=== PATIENT | male | born 1945 | race Two or more races ===

== ENCOUNTER 2023-10-02 17:05 | Inpatient (IN) | payer OTHER, MEDICAID ==
[~2023-10-02] VITALS: Ht 175.3 cm; Wt 108.2 kg
[2023-10-02 17:56] LABS: Basophils # (auto) 0 10 ^3/uL (0-0.2); Basophils % (auto) 0.4 % (0.0-2.0); Eosinophils # (auto) 0.1 10 ^3/uL (0-0.8); Eosinophils % (auto) 1.3 % (0.0-7.0); Hematocrit 37.3 % (41.0-53.0); Hemoglobin 13.1 g/dL (13.5-17.5); Lymphocytes # (auto) 0.9 10 ^3/uL (0.4-5.4); Lymphocytes % (auto) 9.7 % (10.0-50.0); Mean Corpuscular Hemoglobin 31.2 pg (28.0-32.0); Mean Corpuscular Hgb Conc. 35.1 g/dL (32.0-36.0); Mean Corpuscular Volume 88.9 fL (80.0-100.0); Monocytes # (auto) 0.7 10 ^3/uL (0-1.3); Monocytes % (auto) 7.1 % (0.0-12.0); Neutrophils # (auto) 7.7 10 ^3/uL (1.6-8.6); Neutrophils % (auto) 81.5 % (37.0-80.0); Red Cell Distribution Width 13.4 % (11.8-14.3); White Blood Cell 9.4 10^3/uL (4.4-10.8)
[2023-10-02 18:15] LABS: Alanine Aminotransferase 25 U/L (7-40); Albumin 3.9 g/dL (3.2-4.8); Alkaline Phosphatase 108 U/L (46-116); Anion Gap 5 (5-15); Aspartate Aminotransferase 13 U/L (13-40); BUN/Creatinine Ratio 12.1 (10.0-20.0); Bilirubin, Total 0.7 mg/dL (0.2-1.0); Blood Urea Nitrogen 11 mg/dL (9-23); Calcium 8.6 mg/dL (8.7-10.4); Carbon Dioxide 30 mmol/L (20-30); Chloride 90 mmol/L (98-107); Glucose 153 mg/dL (74-106); Potassium 3.4 mmol/L (3.5-5.1); Sodium 125 mmol/L (136-145)
[2023-10-02 18:18] LABS: INR 1.04 (0.9-1.15); Partial Thromboplastin Time 34.8 SEC (24.5-34.5)
[2023-10-02] MEDS: ACETAMINOPHEN 500 MG TAB PO ONE (18:23)
[2023-10-02] MEDS: SODIUM CHLORIDE 0.9% 1,000 ML IV ONE (20:29)
[2023-10-02] MEDS: POTASSIUM CHL 20 Meq TABLET PO ONE (20:30)
[2023-10-02] MEDS: cefTRIAXone 1GM/50ML D5W 50 ML IV ONE (20:30)
[2023-10-02] MEDS: AZITHROMYCIN 500MG/ 250ML 250 ML IV ONE (20:31)
[2023-10-02 21:28] VITALS: PULSE 78; RESP 16; O2SAT 97
[2023-10-02] MEDS ORDERED: hydrALAZINE HCL 20 MG/ML VL IV PRN (23:15)
[2023-10-02] MEDS ORDERED: ONDANSETRON HCL 4 MG/2 ML VIAL IV PRN (23:15)
[2023-10-02] MEDS ORDERED: HYDROcodone-ACET 5/325MG TAB PO PRN (23:15)
[2023-10-02] MEDS ORDERED: DEXTROSE (50%) 50ML SYRG IV PRN (23:15)
[2023-10-02] MEDS ORDERED: NITROGLYCERIN 0.4 MG SL TAB SL PRN (23:15)
[2023-10-02] MEDS ORDERED: DOCUSATE SOD 100 MG CAP PO PRN (23:15)
[2023-10-02] MEDS ORDERED: ACETAMINOPHEN 325 MG TAB PO PRN (23:15)
[2023-10-02] MEDS ORDERED: MORPHINE SULFATE INJ 2 MG/ml SYRG IV PRN ×2 (23:15)
[2023-10-03] VITALS (9 sets, daily range): BP systolic 108–128; BP diastolic 63–74; PULSE 73–94; RESP 15–19; TEMP 97.7–98.4; O2SAT 95–98
[2023-10-03] MEDS: SODIUM CHLORIDE 0.9% 1,000 ML IV SCH (00:59)
[2023-10-03 01:40] LABS: Urine Bacteria None Seen /hpf (None Seen)
[2023-10-03 01:57] LABS: Urine Blood 3+ /uL (Negative); Urine Clarity Turbid (Clear); Urine Color Colorless (Yellow); Urine Protein, UAD TRACE (Negative); Urine Specific Gravity 1.006 (1.001-1.035); Urine Urobilinogen Normal (Negative); Urine WBC 350 /hpf (0 - 3)
[2023-10-03 04:13] LABS: COVID19 ANTIGEN SOFIA FIA NEGATIVE (NEGATIVE); Rapid Influenza A Negative (Negative); Rapid Influenza B Negative (Negative)
[2023-10-03] MEDS: ACCU-CHEK COMFORT CURVE STRIP VI SCH (05:58)
[2023-10-03] MEDS: InsuLIN REG 1unit/0.01ml Soln (100units/ml) SC SCH ×2 (05:58→22:00)
[2023-10-03 06:45] LABS: Basophils # (auto) 0 10 ^3/uL (0-0.2); Basophils % (auto) 0.5 % (0.0-2.0); Eosinophils # (auto) 0.1 10 ^3/uL (0-0.8); Eosinophils % (auto) 2.1 % (0.0-7.0); Hematocrit 35.8 % (41.0-53.0); Hemoglobin 12.6 g/dL (13.5-17.5); Lymphocytes # (auto) 0.7 10 ^3/uL (0.4-5.4); Lymphocytes % (auto) 11.4 % (10.0-50.0); Mean Corpuscular Hemoglobin 31.4 pg (28.0-32.0); Mean Corpuscular Hgb Conc. 35.1 g/dL (32.0-36.0); Mean Corpuscular Volume 89.3 fL (80.0-100.0); Monocytes # (auto) 0.7 10 ^3/uL (0-1.3); Nucleated Red Blood Cells % 0.1 %; Red Blood Cells 4.01 10^6/uL (4.5-5.90); Red Cell Distribution Width 13.2 % (11.8-14.3); White Blood Cell 6.6 10^3/uL (4.4-10.8)
[2023-10-03 07:17] LABS: Alanine Aminotransferase 21 U/L (7-40); Albumin 3.7 g/dL (3.2-4.8); Alkaline Phosphatase 95 U/L (46-116); Anion Gap 6 (5-15); Aspartate Aminotransferase 13 U/L (13-40); Calcium 8.8 mg/dL (8.7-10.4); Carbon Dioxide 28 mmol/L (20-30); Chloride 95 mmol/L (98-107); Glucose 130 mg/dL (74-106); Potassium 3.3 mmol/L (3.5-5.1); Sodium 129 mmol/L (136-145)
[2023-10-03 07:18] LABS: Bilirubin, Total 0.7 mg/dL (0.2-1.0); Total Protein 6.1 g/dL (5.7-8.2)
[2023-10-03 08:49] LABS: BUN/Creatinine Ratio 9.8 (10.0-20.0); Blood Urea Nitrogen 8 mg/dL (9-23)
[2023-10-03] MEDS: ASPirin 81 mg TAB PO SCH (10:09)
[2023-10-03 10:39] LABS: Triglycerides 70 mg/dL (< 150)
[2023-10-03 10:40] LABS: LDL Cholesterol 47 mg/dL (< 100)
[2023-10-03 10:42] LABS: Cholesterol 104 mg/dL (< 200); HDL Cholesterol 39 mg/dL (40-59)
[2023-10-03 11:16] LABS: Amphetamine Screen, Urine Neg (NEGATIVE); Barbiturate Scree,Urine Neg (NEGATIVE); Benzodiazephine Screen, Urine Neg (NEGATIVE); Cannabinoid Screen, Urine Neg (NEGATIVE); Cocaine Screen, Urine Neg (NEGATIVE); Opiate Scree,Urine Neg (NEGATIVE); Phencyclidine Screen, Urine Neg (NEGATIVE)
[2023-10-03] MEDS: POTASSIUM CHL 20 Meq TABLET PO ONE (13:33)
[2023-10-03] MEDS: AZITHROMYCIN 500MG/ 250ML 250 ML IV SCH (20:02)
[2023-10-03] MEDS: METOPROLOL TARTRATE 25 MG TAB PO SCH (22:10)
[2023-10-03] MEDS: ENOXAPARIN SOD 100 MG/1 ML SYRINGE SC SCH (22:14)
[2023-10-03] MEDS: ATORVASTATIN 20 MG TAB PO SCH (22:14)
[2023-10-03] MEDS: cefTRIAXone 1GM/50ML D5W 50 ML IV SCH (22:21)
[2023-10-04 01:00] VITALS: BP 144/68; PULSE 67; RESP 19; TEMP 97.8; O2SAT 93
[2023-10-04 05:00] VITALS: BP 149/82; PULSE 74; RESP 17; TEMP 97.8; O2SAT 96
[2023-10-04 08:00] VITALS: BP 126/70; PULSE 82; PULSE 87; RESP 18; TEMP 98; O2SAT 97
[2023-10-04 08:40] LABS: Basophils # (auto) 0 10 ^3/uL (0-0.2); Basophils % (auto) 0.6 % (0.0-2.0); Eosinophils # (auto) 0.2 10 ^3/uL (0-0.8); Eosinophils % (auto) 3.8 % (0.0-7.0); Hematocrit 37.8 % (41.0-53.0); Hemoglobin 13.2 g/dL (13.5-17.5); Lymphocytes % (auto) 18.7 % (10.0-50.0); Mean Corpuscular Hemoglobin 31.1 pg (28.0-32.0); Mean Corpuscular Hgb Conc. 34.9 g/dL (32.0-36.0); Mean Corpuscular Volume 89.1 fL (80.0-100.0); Monocytes # (auto) 0.7 10 ^3/uL (0-1.3); Neutrophils # (auto) 3.4 10 ^3/uL (1.6-8.6); Neutrophils % (auto) 63.9 % (37.0-80.0); Nucleated Red Blood Cells % 0.1 %; Red Blood Cells 4.24 10^6/uL (4.5-5.90); Red Cell Distribution Width 13.3 % (11.8-14.3); White Blood Cell 5.3 10^3/uL (4.4-10.8)
[2023-10-04 09:01] LABS: Anion Gap 6 (5-15); Carbon Dioxide 25 mmol/L (20-30); Chloride 97 mmol/L (98-107); Potassium 3.8 mmol/L (3.5-5.1); Sodium 128 mmol/L (136-145)
[2023-10-04 09:02] LABS: Calcium 8.9 mg/dL (8.7-10.4)
[2023-10-04 09:07] LABS: Blood Urea Nitrogen 7 mg/dL (9-23); Glucose 128 mg/dL (74-106)
[2023-10-04 09:20] LABS: Magnesium 1.7 mg/dL (1.6-2.6)
[2023-10-04] MEDS ORDERED: HYDR25TA4 PO (10:41)
[2023-10-04] MEDS ORDERED: AMLO1TAB22 PO (10:41)
[2023-10-04] MEDS ORDERED: METO25TA93 PO (10:42)
[2023-10-04] MEDS ORDERED: TRAZ-227 PO (10:43)
[2023-10-04] MEDS ORDERED: CLON0.1T PO (10:43)
[2023-10-04] MEDS ORDERED: ASPI-543 PO (10:44)
[2023-10-04] MEDS ORDERED: ATOR20TA50 PO (10:44)
[2023-10-04] MEDS ORDERED: PANT40T PO (10:47)
[2023-10-04] MEDS ORDERED: TAMS0.4C36 PO (10:48)
[2023-10-04] MEDS ORDERED: CHOL20007 PO (10:49)
[2023-10-04] MEDS ORDERED: FURO20TA3 PO (10:49)
[2023-10-04] MEDS ORDERED: METF-371 PO (10:50)
[2023-10-04] MEDS ORDERED: ACET250T20 PO (10:50)
[2023-10-04 12:00] VITALS: BP 126/66; PULSE 65; RESP 20; TEMP 97.5; O2SAT 95
[2023-10-04 16:00] VITALS: BP 130/65; PULSE 75; RESP 20; TEMP 97.3; O2SAT 99
[2023-10-04] MEDS ORDERED: AZITTAB PO (16:16)
[2023-10-04] MEDS ORDERED: RIVA1TAB PO (16:16)
[2023-10-04] MEDS ORDERED: MET25T PO (16:17)
[2023-10-04 17:14] VITALS: BP 122/68; PULSE 80; RESP 20; TEMP 36.7; O2SAT 99
[2023-10-04] MEDS: MAGNESIUM SULFATE 1GM/100ML 100 ML IV ONE (17:36)
== END 2023-10-04 19:10 | disposition home or self-care (01) | DRG 178 ==
LOC: ER 17:05 → TELE-CENTR 23:16 → TELE 23:16 → TELE-CENTR 10-03 02:59
PROVIDERS: ADMIT Nurse Practitioner Family; ATTEND Nurse Practitioner Family
DX: J15.69 Pneumonia due to other Gram-negative bacteria (principal); E87.1 Hypo-osmolality and hyponatremia; I24.9 Acute ischemic heart disease, unspecified; I50.32 Chronic diastolic (congestive) heart failure; C67.9 Malignant neoplasm of bladder, unspecified; J15.9 Unspecified bacterial pneumonia; E11.9 Type 2 diabetes mellitus without complications; E66.9 Obesity, unspecified; E78.5 Hyperlipidemia, unspecified; I48.91 Unspecified atrial fibrillation; N40.1 Benign prostatic hyperplasia with lower urinary tract symptoms; R33.8 Other retention of urine; Z20.822 Contact with and (suspected) exposure to COVID-19; E87.6 Hypokalemia; D64.9 Anemia, unspecified; I11.0 Hypertensive heart disease with heart failure; Z85.528 Personal history of other malignant neoplasm of kidney; Z90.5 Acquired absence of kidney; Z68.35 Body mass index [BMI] 35.0-35.9, adult
CPT/HCPCS: 36415; 71045; 71250; 80048; 80053; 80061; 80307; 81001; 82962; 83036; 83605; 83735; 83880; 84443; 84484; 85025; 85610; 85730; 87040; 87086; 87088; 87186; 87426; 87804; 93005; 93306; G0378